=== PATIENT | male | born 1945 | race Caucasian/White ===

== ENCOUNTER 2017-11-16 11:08 | Observation (INO) | payer MEDICARE, OTHER ==
[2017-11-16] MEDS ORDERED: Sodium Chloride 0.9% 5 ML Syringe FLUSH PRN ×2 (11:09→12:03)
[2017-11-16] MEDS ORDERED: Aspirin 81 MG Tab.Chew PO ONE (11:18)
--- NOTE | 2017-11-16 11:18 | EDM.PDOC ---
ED HPI GENERAL MEDICAL PROBLEM - General Chief Complaint: Cardiovascular Problem Stated Complaint: CHEST PAIN Time Seen by Provider: 11/16/17 11:11 Source of Information: Reports: Patient History Limitations: Reports: No Limitations - History of Present Illness INITIAL COMMENTS - FREE TEXT/NARRATIVE: 72 YO WM presents to ER with 4 day history of substernal chest pain. Pt reports symptoms began with mild discomfort and over the last few days have become more severe. Pt reports today he developed associated shortness of breath and diaphoresis. Pt denies any dizziness/lightheadedness or nausea vomiting. Pt with PMH of Htn and IDDM which he reports he's been compliant with his medication. Pt denies tobacco use or previous cardiac history, although our old records indicate he's had an AMI in the past. Onset Date: 11/13/17 Duration: Day(s): Location: Reports: Chest Severity: Moderate Improves with: Reports: None Worsens with: Reports: None Associated Symptoms: Reports: Chest Pain, Diaphoresis, Shortness of Breath. Denies: Fever/Chills, Headaches, Nausea/Vomiting, Syncope Mid-Sternal Chest Pain Score (Numeric/FACES): 7 - Related Data Allergies Allergy/AdvReac Type Severity Reaction Status Date / Time No Known Drug Allergies Allergy Other Verified 08/04/14 20:06 Home Meds: Home Meds Aspirin [Halfprin] 81 mg PO DAILY 12/17/13 [History] Hydrochlorothiazide 12.5 mg PO DAILY 12/17/13 [History] Insulin Detemir [Levemir] 35 unit SUBCUT BID 12/17/13 [History] Lisinopril [Prinivil] 15 mg PO DAILY 12/17/13 [History] Naproxen Sodium 1 tab PO Q12HR PRN 12/17/13 [History] Pioglitazone [Actos] 30 mg PO DAILY 12/17/13 [History] Docusate Sodium [Colace] 100 mg PO DAILY 05/04/14 [History] Metoprolol Succinate [Toprol XL] 25 mg PO BID 05/04/14 [History] Social & Family History - Tobacco Use Smoking Status *Q: Never Smoker Second Hand Smoke Exposure: No - Alcohol Use Days Per Week of Alcohol Use: 1 Number of Drinks Per Day: 2 Total Drinks Per Week: 2 - Recreational Drug Use Recreational Drug Use: No ED ROS GENERAL - Review of Systems Review Of Systems: See Below Constitutional: Reports: No Symptoms HEENT: Reports: No Symptoms Respiratory: Reports: Shortness of Breath Cardiovascular: Reports: Chest Pain Endocrine: Reports: No Symptoms GI/Abdominal: Reports: No Symptoms : Reports: No Symptoms Musculoskeletal: Reports: No Symptoms Skin: Reports: No Symptoms Neurological: Reports: No Symptoms Psychiatric: Reports: No Symptoms Hematologic/Lymphatic: Reports: No Symptoms Immunologic: Reports: No Symptoms ED EXAM, GENERAL - Physical Exam Exam: See Below Exam Limited By: No Limitations General Appearance: Alert, WD/WN, No Apparent Distress Head: Atraumatic, Normocephalic Neck: Normal Inspection, Supple, Non-Tender, Full Range of Motion Respiratory/Chest: No Respiratory Distress, Lungs Clear, Normal Breath Sounds, No Accessory Muscle Use, Chest Non-Tender Cardiovascular: Normal Peripheral Pulses, Regular Rate, Rhythm, No Edema, No Gallop, No JVD, No Murmur, No Rub GI/Abdominal: Normal Bowel Sounds, Soft, Non-Tender, No Organomegaly, No Distention, No Abnormal Bruit, No Mass Back Exam: Normal Inspection, Full Range of Motion, NT Extremities: Normal Inspection, Normal Range of Motion, Non-Tender, Normal Capillary Refill, No Pedal Edema Neurological: Alert, Oriented, CN II-XII Intact, Normal Cognition, Normal Gait, Normal Reflexes, No Motor/Sensory Deficits Psychiatric: Normal Affect, Normal Mood Skin Exam: Warm, Dry, Intact, Normal Color, No Rash Lymphatic: No Adenopathy EKG INTERPRETATION EKG Date: 11/16/17 Time: 11:19 Rhythm: NSR Rate (Beats/Min): 75 [place]: Normal P-Wave: Present QRS: Normal ST-T: Normal QT: Normal Comparison: NA - No Prior EKG Course - Vital Signs Last Recorded V/S: Last Vital Signs Temp 36.2 C 11/16/17 11:10 Pulse 75 11/16/17 11:10 Resp 24 H 11/16/17 11:10 BP 175/96 H 11/16/17 11:41 Pulse Ox 91 L 11/16/17 11:10 - Orders/Labs/Meds Orders: Active Orders 24 hr Category Date Time Status Cardiac Monitoring [RC] . DIRECTED Care 11/16/17 11:09 Active EKG Documentation Completion [RC] ASDIRECTED Care 11/16/17 11:10 Active Oxygen Therapy Adult [Oxygen Therapy, ED] [] Care 11/16/17 11:09 Active ASDIRECTED Peripheral IV Care [RC] . DIRECTED Care 11/16/17 11:10 Active Chest 1V Frontal [CR] Stat Exams 11/16/17 11:09 Ordered Nitroglycerin [Nitro-Bid 2%] Med 11/16/17 11:45 Ordered 1 gm TOP Q6H Sodium Chloride 0.9% [Syrex Flush] Med 11/16/17 11:09 Active 5 ml FLUSH Q8HR PRN Peripheral IV Insertion Adult [OM.PC] Routine Oth 11/16/17 11:09 Ordered Medication Orders Nitroglycerin (Nitro-Bid 2%) 1 gm TOP Q6H RACHEL Last Admin: 11/16/17 11:55 Dose: 1 gm Sodium Chloride (Syrex Flush) 5 ml FLUSH Q8HR PRN PRN Reason: Keep Vein Open Labs: Laboratory Tests 11/16/17 11/16/17 11/16/17 Range/Units 11:15 11:15 11:15 WBC 9.8 (5.0-10.0) 10^3/uL RBC 4.74 (4.50-6.00) 10^6/uL Hgb 13.6 (13.0-17.0) g/dL Hct 41.9 (40.0-52.0) % MCV 88.3 (82.0-92.0) fL MCH 28.8 (27.0-31.0) pg MCHC 32.6 (32.0-36.0) g/dL RDW 13.5 (11.5-14.5) % Plt Count 289 (150-300) 10^3/uL MPV 7.0 L (7.4-10.4) fL Neut % (Auto) 64.6 (50.0-70.0) % Lymph % (Auto) 22.5 (20.0-40.0) % [place] % (Auto) 6.8 (2.0-8.0) % Eos % (Auto) 5.7 H (1.0-3.0) % Baso % (Auto) 0.4 (0.0-1.0) % Neut # (Auto) 6.3 (2.5-7.0) 10^3/uL Lymph # (Auto) 2.2 (1.0-4.0) 10^3/uL [place] # (Auto) 0.7 (0.1-0.8) 10^3/uL Eos # (Auto) 0.6 H (0.1-0.3) 10^3/uL Baso # (Auto) 0.0 (0.0-0.1) 10^3/uL PT 9.6 (8.9-11.4) SEC INR 0.9 (0.9-1.1) APTT 22.6 (20.8-31.2) SEC Sodium 144 (136-145) mmol/L Potassium 4.8 (3.3-5.3) mmol/L Chloride 104 (98-115) mmol/L Carbon Dioxide 24.5 (21.0-32.0) mmol/L BUN 20 (6-25) mg/dL Creatinine 1.10 (0.51-1.17) mg/dL Est Cr Clr Drug Dosing 64.67 mL/min Estimated GFR (MDRD) > 60 mL/min Glucose 222 H (70-110) mg/dL POC Glucose (74-106) mg/dl Calcium 8.2 L (8.7-10.3) mg/dL Total Bilirubin 0.4 (0.2-1.0) mg/dL AST 17 (15-37) U/L ALT 25 (12-78) U/L Alkaline Phosphatase 102 (46-116) IU/L Creatine Kinase 116 (26-276) U/L CK-MB (CK-2) 1.60 (0.00-4.30) ng/mL Troponin I < 0.04 (0.00-0.070) ng/mL B-Natriuretic Peptide 67 (0-100) pg/mL Total Protein 7.3 (6.4-8.2) g/dL Albumin 3.42 (3.00-4.80) g/dL 11/16/17 Range/Units 11:18 WBC (5.0-10.0) 10^3/uL RBC (4.50-6.00) 10^6/uL Hgb (13.0-17.0) g/dL Hct (40.0-52.0) % MCV (82.0-92.0) fL MCH (27.0-31.0) pg MCHC (32.0-36.0) g/dL RDW (11.5-14.5) % Plt Count (150-300) 10^3/uL MPV (7.4-10.4) fL Neut % (Auto) (50.0-70.0) % Lymph % (Auto) (20.0-40.0) % [place] % (Auto) (2.0-8.0) % Eos % (Auto) (1.0-3.0) % Baso % (Auto) (0.0-1.0) % Neut # (Auto) (2.5-7.0) 10^3/uL Lymph # (Auto) (1.0-4.0) 10^3/uL [place] # (Auto) (0.1-0.8) 10^3/uL Eos # (Auto) (0.1-0.3) 10^3/uL Baso # (Auto) (0.0-0.1) 10^3/uL PT (8.9-11.4) SEC INR (0.9-1.1) APTT (20.8-31.2) SEC Sodium (136-145) mmol/L Potassium (3.3-5.3) mmol/L Chloride (98-115) mmol/L Carbon Dioxide (21.0-32.0) mmol/L BUN (6-25) mg/dL Creatinine (0.51-1.17) mg/dL Est Cr Clr Drug Dosing mL/min Estimated GFR (MDRD) mL/min Glucose (70-110) mg/dL POC Glucose 196 H (74-106) mg/dl Calcium (8.7-10.3) mg/dL Total Bilirubin (0.2-1.0) mg/dL AST (15-37) U/L ALT (12-78) U/L Alkaline Phosphatase (46-116) IU/L Creatine Kinase (26-276) U/L CK-MB (CK-2) (0.00-4.30) ng/mL Troponin I (0.00-0.070) ng/mL B-Natriuretic Peptide (0-100) pg/mL Total Protein (6.4-8.2) g/dL Albumin (3.00-4.80) g/dL Meds: Medications Generic Name Dose Route Start Last Admin Trade Name Freq PRN Reason Stop Dose Admin Nitroglycerin 1 gm 11/16/17 11:45 11/16/17 11:55 Nitro-Bid 2% TOP 1 gm Q6H RACHEL Administration Sodium Chloride 5 ml 11/16/17 11:09 Syrex Flush FLUSH Q8HR PRN Keep Vein Open Discontinued Medications Generic Name Dose Route Start Last Admin Trade Name Freq PRN Reason Stop Dose Admin Aspirin 324 mg 11/16/17 11:18 11/16/17 11:19 Aspirin PO 11/16/17 11:19 324 mg ONETIME ONE Administration Aspirin Confirm 11/16/17 11:19 11/16/17 11:24 Aspirin Administered 11/16/17 11:20 Not Given Dose 324 mg .ROUTE .STK-MED ONE Nitroglycerin 0.4 mg 11/16/17 11:18 11/16/17 11:41 Nitrostat SL 0.4 mg Q5M PRN Administration Chest Pain Nitroglycerin Confirm 11/16/17 11:19 11/16/17 11:24 Nitrostat Administered 11/16/17 11:20 Not Given Dose 0.4 mg .ROUTE .STK-MED ONE - Radiology Interpretation Free Text/Narrative:: CXR- NAD Departure - Departure Time of Disposition: 11:58 Disposition: Refer to Observation Condition: Fair Clinical Impression: Chest pain Qualifiers: Chest pain type: unspecified Qualified Code(s): R07.9 - Chest pain, unspecified Hypertension Qualifiers: Hypertension type: unspecified Qualified Code(s): I10 - Essential (primary) hypertension Referrals: Mikaela Fitzgerald PA-C [Primary Care Provider] - Forms: ED Department Discharge - My Orders Last 24 Hours: My Active Orders 11/16/17 11:09 Cardiac Monitoring [RC] . DIRECTED Oxygen Therapy Adult [Oxygen Therapy, ED] [RC] ASDIRECTED Chest 1V Frontal [CR] Stat Sodium Chloride 0.9% [Syrex Flush] 5 ml FLUSH Q8HR PRN Peripheral IV Insertion Adult [OM.PC] Routine 11/16/17 11:10 EKG Documentation Completion [RC] ASDIRECTED Peripheral IV Care [RC] . DIRECTED 11/16/17 11:45 Nitroglycerin [Nitro-Bid 2%] 1 gm TOP Q6H - Assessment/Plan Last 24 Hours: My Active Orders 11/16/17 11:09 Cardiac Monitoring [RC] . DIRECTED Oxygen Therapy Adult [Oxygen Therapy, ED] [RC] ASDIRECTED Chest 1V Frontal [CR] Stat Sodium Chloride 0.9% [Syrex Flush] 5 ml FLUSH Q8HR PRN Peripheral IV Insertion Adult [OM.PC] Routine 11/16/17 11:10 EKG Documentation Completion [RC] ASDIRECTED Peripheral IV Care [RC] . DIRECTED 11/16/17 11:45 Nitroglycerin [Nitro-Bid 2%] 1 gm TOP Q6H Assessment:: 1. Chest pain 2. Hypertension- poorly controlled Plan: 1. Admit for Obs- Chest pain to [facility] 2. supportive care 3. trop I Q6 4. nitro/ASA
[2017-11-16] MEDS ORDERED: Aspirin 81 MG Tab.Chew ONE (11:19)
[2017-11-16] MEDS ORDERED: Nitroglycerin 0.4 MG Tab.SL ONE (11:19)
[2017-11-16] MEDS: Nitroglycerin 0.4 MG Tab.SL SL PRN ×3 (11:20→11:41)
[2017-11-16 11:52] LABS: CHLORIDE,CL 104 mmol/L (98-115); SODIUM,NA 144 mmol/L (136-145)
[2017-11-16] MEDS: Nitroglycerin 2% Oint 1 GM UD Packet TOP SCH ×2 (11:55→17:36)
[2017-11-16] MEDS ORDERED: Ondansetron 4 MG/2 ML SDV IV PRN (12:03)
[2017-11-16] MEDS ORDERED: Morphine 2 MG/ML Syringe IVPUSH PRN (12:03)
[2017-11-16] MEDS ORDERED: Metoprolol Tartrate 5 MG/5 ML SDV IVPUSH ONE (12:11)
[2017-11-16] MEDS ORDERED: Labetalol 100 MG/20 ML MDV IVPUSH ONE ×2 (16:14→16:42)
[2017-11-16] MEDS: Potassium Chloride 10 MEQ Tab.ER PO SCH (18:04)
[2017-11-16] MEDS: Lisinopril 10 MG Tab PO SCH (18:04)
[2017-11-16] MEDS: Insulin Aspart 100 Units/ML 3 ML Pen SUBCUT SCH (19:38)
[2017-11-16] MEDS: Insulin Detemir 100 Units/ML 3 ML Pen SUBCUT SCH (20:24)
[2017-11-16] MEDS ORDERED: Metoprolol Tartrate 50 MG Tab PO ONE (21:00)
[2017-11-16] MEDS: Docusate Sodium 100 MG Cap PO SCH (21:32)
[2017-11-16] MEDS: Gabapentin 300 MG Cap PO SCH (21:32)
[2017-11-17] MEDS: Nitroglycerin 2% Oint 1 GM UD Packet TOP SCH ×2 (00:07→06:09)
[2017-11-17] MEDS ORDERED: Nitroglycerin 0.4 MG Tab.SL SL PRN (00:38)
[2017-11-17] MEDS ORDERED: Atropine 0.1 MG/ML 10 ML Syringe IVPUSH PRN (00:38)
[2017-11-17] MEDS ORDERED: EPINEPHrine 1:10,000 1 MG/10 ML Syringe IVPUSH PRN (00:38)
[2017-11-17] MEDS ORDERED: Lidocaine 2% 100 MG/5 ML Syringe IVPUSH PRN (00:38)
[2017-11-17 08:03] LABS: CHLORIDE,CL 105 mmol/L (98-115); SODIUM,NA 141 mmol/L (136-145)
[2017-11-17] MEDS: Insulin Detemir 100 Units/ML 3 ML Pen SUBCUT SCH ×2 (08:49→19:39)
[2017-11-17] MEDS: Aspirin 81 MG Tab.EC PO SCH (08:49)
[2017-11-17] MEDS: Docusate Sodium 100 MG Cap PO SCH ×2 (08:49→20:42)
[2017-11-17] MEDS: Furosemide 20 MG Tab PO SCH (08:49)
[2017-11-17] MEDS: Insulin Aspart 100 Units/ML 3 ML Pen SUBCUT SCH ×2 (08:50→19:40)
[2017-11-17] MEDS: Potassium Chloride 10 MEQ Tab.ER PO SCH (08:53)
[2017-11-17] MEDS ORDERED: Aspirin 325 MG Tab.EC PO SCH (09:00)
--- NOTE | 2017-11-17 10:27 | PCM.HP ---
H&P History of Present Illness - General Date of Service: 11/16/17 Admit Problem/Dx: Admission Diagnosis/Problem Admission Diagnosis/Problem Chest pain Source of Information: Patient, Old Records, Provider, RN History Limitations: Reports: No Limitations - History of Present Illness Initial Comments - Free Text/Narative: This 72-year-old morbidly obese gentleman was admitted through the ED due to chest pain rule, R/O PA and elevated blood pressure. Patient states he was his in his normal state of health until 4 days ago and admits to having normal and stable blood pressures and stated he felt good all winter long however now with a 4-5 day history of progressively worsening substernal chest pain with some shortness of breath. He denies any dizziness/lightheadedness or nausea vomiting. He does have significant CV risk factors that include HTN, T2 DM, obesity without any CVA history in the past. Denies tobacco use. Pertinent home medications include metoprolol succinate 25 mg twice a day, Lasix 20 mg daily, lisinopril 2.5 mg daily aspirin 81 mg daily. statin intolerant--liver Mid-Sternal Chest Pain Score (Numeric/FACES): 2 - Related Data Allergies/Adverse Reactions: Allergies Allergy/AdvReac Type Severity Reaction Status Date / Time exenatide [From Bydureon] Allergy Facial Verified 11/16/17 12:02 Swelling [id number] Reductase Allergy Liver Verified 11/16/17 12:02 Inhibitor Problems Home Medications: Home Meds Aspirin [Halfprin] 81 mg PO DAILY 12/17/13 [History] Insulin Detemir [Levemir] 40 unit SUBCUT BID@12/17/13 [History] Docusate Sodium [Colace] 100 mg PO BID 05/04/14 [History] Metoprolol Succinate [Toprol XL] 25 mg PO BID 05/04/14 [History] Amoxicillin 2,000 mg PO ASDIRECTED PRN 11/16/17 [History] Furosemide [Lasix] 20 mg PO DAILY 11/16/17 [History] Gabapentin [Neurontin] 300 mg PO BEDTIME 11/16/17 [History] Insulin Aspart [Novolog Flexpen] 15 units SQ BID@11/16/17 [History] Lisinopril 2.5 mg PO DAILY 11/16/17 [History] Potassium Chloride [Klor-Con 10] 20 meq PO BID 11/16/17 [History] Past Medical History HEENT History: Reports: Impaired Vision Cardiovascular History: Reports: High Cholesterol, Hypertension Musculoskeletal History: Reports: Arthritis Endocrine/Metabolic History: Reports: Diabetes, Type II, Obesity/BMI 30+ - Infectious Disease History Infectious Disease History: Reports: Measles, Mumps - Past Surgical History Cardiovascular Surgical History: Reports: None GI Surgical History: Reports: Appendectomy Musculoskeletal Surgical History: Reports: Knee Replacement Social & Family History - Family History Family Medical History: Noncontributory - Tobacco Use Smoking Status *Q: Never Smoker Second Hand Smoke Exposure: No - Caffeine Use Caffeine Use: Reports: None Other Caffeine Use: Diet soda only - Alcohol Use Days Per Week of Alcohol Use: 1 Number of Drinks Per Day: 2 Total Drinks Per Week: 2 - Recreational Drug Use Recreational Drug Use: No H&P Review of Systems - Review of Systems: Review Of Systems: See Below General: Denies: Diaphoresis HEENT: Reports: No Symptoms Pulmonary: Reports: Shortness of Breath, Wheezing. Denies: Cough Cardiovascular: Reports: Chest Pain, Blood Pressure Problem. Denies: Palpitations, Orthopnea, PND, Edema, Lightheadedness Gastrointestinal: Reports: No Symptoms Genitourinary: Reports: No Symptoms Musculoskeletal: Reports: No Symptoms Skin: Reports: No Symptoms Psychiatric: Reports: No Symptoms Neurological: Reports: No Symptoms Hematologic/Lymphatic: Reports: No Symptoms Immunologic: Reports: No Symptoms Exam - Exam Exam: See Below - Vital Signs Vital Signs: Last Vital Signs Temp 97.4 F 11/17/17 06:35 Pulse 74 11/17/17 06:35 Resp 16 11/17/17 06:35 BP 145/83 H 11/17/17 06:35 Pulse Ox 94 L 11/17/17 07:25 Weight: 299 lb 4.8 oz - Exam Quality Assessment: Supplemental Oxygen, DVT Prophylaxis General: Alert, Oriented, Moderate Distress HEENT: Mucosa Moist & Reform Neck: Supple Lungs: Clear to Auscultation. No: Wheezing Cardiovascular: Regular Rate, Regular Rhythm GI/Abdominal Exam: Normal Bowel Sounds (Male) Exam: Deferred Rectal (Males) Exam: Deferred Back Exam: No: CVA Tenderness (L), CVA Tenderness (R) Extremities: No Pedal Edema Skin: Warm, Dry, Intact Neurological: Cranial Nerves Intact, Reflexes Equal Bilateral Neuro Extensive - Mental Status: Alert, Oriented x3, Normal Mood/Affect, Normal Cognition Neuro Extensive - Motor, Sensory, Reflexes: CN II-XII Intact, Normal Gait, Normal Reflexes Psychiatric: Alert, Normal Affect, Anxious - Patient Data Lab Results Last 24 hrs: Laboratory Results - last 24 hr 11/16/17 11/16/17 11/16/17 Range/Units 11:15 11:15 11:15 WBC 9.8 (5.0-10.0) 10^3/uL RBC 4.74 (4.50-6.00) 10^6/uL Hgb 13.6 (13.0-17.0) g/dL Hct 41.9 (40.0-52.0) % MCV 88.3 (82.0-92.0) fL MCH 28.8 (27.0-31.0) pg MCHC 32.6 (32.0-36.0) g/dL RDW 13.5 (11.5-14.5) % Plt Count 289 (150-300) 10^3/uL MPV 7.0 L (7.4-10.4) fL Neut % (Auto) 64.6 (50.0-70.0) % Lymph % (Auto) 22.5 (20.0-40.0) % [place] % (Auto) 6.8 (2.0-8.0) % Eos % (Auto) 5.7 H (1.0-3.0) % Baso % (Auto) 0.4 (0.0-1.0) % Neut # (Auto) 6.3 (2.5-7.0) 10^3/uL Lymph # (Auto) 2.2 (1.0-4.0) 10^3/uL [place] # (Auto) 0.7 (0.1-0.8) 10^3/uL Eos # (Auto) 0.6 H (0.1-0.3) 10^3/uL Baso # (Auto) 0.0 (0.0-0.1) 10^3/uL PT 9.6 (8.9-11.4) SEC INR 0.9 (0.9-1.1) APTT 22.6 (20.8-31.2) SEC Sodium 144 (136-145) mmol/L Potassium 4.8 (3.3-5.3) mmol/L Chloride 104 (98-115) mmol/L Carbon Dioxide 24.5 (21.0-32.0) mmol/L BUN 20 (6-25) mg/dL Creatinine 1.10 (0.51-1.17) mg/dL Est Cr Clr Drug Dosing 64.67 mL/min Estimated GFR (MDRD) > 60 mL/min Glucose 222 H (70-110) mg/dL POC Glucose (74-106) mg/dl Calcium 8.2 L (8.7-10.3) mg/dL Magnesium (1.8-2.4) mg/dL Total Bilirubin 0.4 (0.2-1.0) mg/dL AST 17 (15-37) U/L ALT 25 (12-78) U/L Alkaline Phosphatase 102 (46-116) IU/L Creatine Kinase 116 (26-276) U/L CK-MB (CK-2) 1.60 (0.00-4.30) ng/mL Troponin I < 0.04 (0.00-0.070) ng/mL B-Natriuretic Peptide 67 (0-100) pg/mL Total Protein 7.3 (6.4-8.2) g/dL Albumin 3.42 (3.00-4.80) g/dL 11/16/17 11/16/17 11/16/17 Range/Units 11:18 17:40 19:30 WBC (5.0-10.0) 10^3/uL RBC (4.50-6.00) 10^6/uL Hgb (13.0-17.0) g/dL Hct (40.0-52.0) % MCV (82.0-92.0) fL MCH (27.0-31.0) pg MCHC (32.0-36.0) g/dL RDW (11.5-14.5) % Plt Count (150-300) 10^3/uL MPV (7.4-10.4) fL Neut % (Auto) (50.0-70.0) % Lymph % (Auto) (20.0-40.0) % [place] % (Auto) (2.0-8.0) % Eos % (Auto) (1.0-3.0) % Baso % (Auto) (0.0-1.0) % Neut # (Auto) (2.5-7.0) 10^3/uL Lymph # (Auto) (1.0-4.0) 10^3/uL [place] # (Auto) (0.1-0.8) 10^3/uL Eos # (Auto) (0.1-0.3) 10^3/uL Baso # (Auto) (0.0-0.1) 10^3/uL PT (8.9-11.4) SEC INR (0.9-1.1) APTT (20.8-31.2) SEC Sodium (136-145) mmol/L Potassium (3.3-5.3) mmol/L Chloride (98-115) mmol/L Carbon Dioxide (21.0-32.0) mmol/L BUN (6-25) mg/dL Creatinine (0.51-1.17) mg/dL Est Cr Clr Drug Dosing mL/min Estimated GFR (MDRD) mL/min Glucose (70-110) mg/dL POC Glucose 196 H 187 H (74-106) mg/dl Calcium (8.7-10.3) mg/dL Magnesium (1.8-2.4) mg/dL Total Bilirubin (0.2-1.0) mg/dL AST (15-37) U/L ALT (12-78) U/L Alkaline Phosphatase (46-116) IU/L Creatine Kinase (26-276) U/L CK-MB (CK-2) (0.00-4.30) ng/mL Troponin I < 0.04 (0.00-0.070) ng/mL B-Natriuretic Peptide (0-100) pg/mL Total Protein (6.4-8.2) g/dL Albumin (3.00-4.80) g/dL 11/17/17 11/17/17 11/17/17 Range/Units 01:10 07:05 07:05 WBC 10.4 H (5.0-10.0) 10^3/uL RBC 4.50 (4.50-6.00) 10^6/uL Hgb 12.6 L (13.0-17.0) g/dL Hct 40.1 (40.0-52.0) % MCV 89.2 (82.0-92.0) fL MCH 28.1 (27.0-31.0) pg MCHC 31.5 L (32.0-36.0) g/dL RDW 13.5 (11.5-14.5) % Plt Count 273 (150-300) 10^3/uL MPV 7.2 L (7.4-10.4) fL Neut % (Auto) 65.6 (50.0-70.0) % Lymph % (Auto) 20.7 (20.0-40.0) % [place] % (Auto) 8.0 (2.0-8.0) % Eos % (Auto) 5.3 H (1.0-3.0) % Baso % (Auto) 0.4 (0.0-1.0) % Neut # (Auto) 6.8 (2.5-7.0) 10^3/uL Lymph # (Auto) 2.2 (1.0-4.0) 10^3/uL [place] # (Auto) 0.8 (0.1-0.8) 10^3/uL Eos # (Auto) 0.6 H (0.1-0.3) 10^3/uL Baso # (Auto) 0.0 (0.0-0.1) 10^3/uL PT (8.9-11.4) SEC INR (0.9-1.1) APTT (20.8-31.2) SEC Sodium 141 (136-145) mmol/L Potassium 4.8 (3.3-5.3) mmol/L Chloride 105 (98-115) mmol/L Carbon Dioxide 28.7 (21.0-32.0) mmol/L BUN 20 (6-25) mg/dL Creatinine 1.22 H (0.51-1.17) mg/dL Est Cr Clr Drug Dosing 58.31 mL/min Estimated GFR (MDRD) 58 mL/min Glucose 158 H (70-110) mg/dL POC Glucose (74-106) mg/dl Calcium 8.0 L (8.7-10.3) mg/dL Magnesium 1.7 L (1.8-2.4) mg/dL Total Bilirubin (0.2-1.0) mg/dL AST (15-37) U/L ALT (12-78) U/L Alkaline Phosphatase (46-116) IU/L Creatine Kinase (26-276) U/L CK-MB (CK-2) (0.00-4.30) ng/mL Troponin I < 0.04 < 0.04 (0.00-0.070) ng/mL B-Natriuretic Peptide (0-100) pg/mL Total Protein (6.4-8.2) g/dL Albumin (3.00-4.80) g/dL 11/17/17 Range/Units 07:11 WBC (5.0-10.0) 10^3/uL RBC (4.50-6.00) 10^6/uL Hgb (13.0-17.0) g/dL Hct (40.0-52.0) % MCV (82.0-92.0) fL MCH (27.0-31.0) pg MCHC (32.0-36.0) g/dL RDW (11.5-14.5) % Plt Count (150-300) 10^3/uL MPV (7.4-10.4) fL Neut % (Auto) (50.0-70.0) % Lymph % (Auto) (20.0-40.0) % [place] % (Auto) (2.0-8.0) % Eos % (Auto) (1.0-3.0) % Baso % (Auto) (0.0-1.0) % Neut # (Auto) (2.5-7.0) 10^3/uL Lymph # (Auto) (1.0-4.0) 10^3/uL [place] # (Auto) (0.1-0.8) 10^3/uL Eos # (Auto) (0.1-0.3) 10^3/uL Baso # (Auto) (0.0-0.1) 10^3/uL PT (8.9-11.4) SEC INR (0.9-1.1) APTT (20.8-31.2) SEC Sodium (136-145) mmol/L Potassium (3.3-5.3) mmol/L Chloride (98-115) mmol/L Carbon Dioxide (21.0-32.0) mmol/L BUN (6-25) mg/dL Creatinine (0.51-1.17) mg/dL Est Cr Clr Drug Dosing mL/min Estimated GFR (MDRD) mL/min Glucose (70-110) mg/dL POC Glucose 157 H (74-106) mg/dl Calcium (8.7-10.3) mg/dL Magnesium (1.8-2.4) mg/dL Total Bilirubin (0.2-1.0) mg/dL AST (15-37) U/L ALT (12-78) U/L Alkaline Phosphatase (46-116) IU/L Creatine Kinase (26-276) U/L CK-MB (CK-2) (0.00-4.30) ng/mL Troponin I (0.00-0.070) ng/mL B-Natriuretic Peptide (0-100) pg/mL Total Protein (6.4-8.2) g/dL Albumin (3.00-4.80) g/dL Result Diagrams: 11/17/17 07:05 11/17/17 07:05 EKG INTERPRETATION EKG Date: 11/16/17 Rhythm: Other (Sinus tach) [place]: Normal P-Wave: Present QRS: Normal ST-T: Normal QT: Normal Problem List Initiated/Reviewed/Updated: Yes Orders Last 24hrs: Active Orders 24 hr Category Date Time Status Patient Status [ADT] Routine ADT 11/16/17 12:03 Ordered Bedrest Bathroom Privileges [RC] ASDIRECTED Care 11/16/17 12:03 Active Blood Glucose Check, Bedside [RC] BIDMEALS Care 11/16/17 16:40 Active Cardiac Monitoring [RC] . DIRECTED Care 11/16/17 11:09 Inactive Cardiac Monitoring [RC] 0300,0700,1100,1500,1900,2300 Care 11/16/17 12:04 Active Oxygen Therapy [RC] .PRN Care 11/16/17 12:03 Active VTE/DVT Education [RC] PER UNIT ROUTINE Care 11/16/17 12:03 Active Vital Signs [RC] 0300,0700,1100,1500,1900,2300 Care 11/16/17 12:03 Active [employer] Diet [DIET] Diet 11/16/17 Lunch Active Heart Healthy Diet [DIET] Diet 11/16/17 Dinner Active Aspirin [Halfprin] Med 11/17/17 09:00 Active 81 mg PO DAILY Atropine [Atropine 0.1 MG/ML] Med 11/17/17 00:38 Active 0 mg IVPUSH ASDIRECTED PRN Docusate Sodium [Colace] Med 11/16/17 21:00 Active 100 mg PO BID EPINEPHrine [EPINEPHrine 1:10,000] Med 11/17/17 00:38 Active 1 mg IVPUSH ASDIRECTED PRN Furosemide [Lasix] Med 11/17/17 09:00 Active 20 mg PO DAILY Gabapentin [Neurontin] Med 11/16/17 21:00 Active 300 mg PO BEDTIME Insulin Aspart [NovoLOG] Med 11/16/17 19:30 Active 15 unit SUBCUT BID@0730,1930 Insulin Detemir [Levemir] Med 11/16/17 19:30 Active 40 unit SUBCUT BID@0730,1930 Isosorbide Mononitrate [Imdur] Med 11/17/17 09:00 Active 30 mg PO DAILY Lidocaine 2% [Xylocaine 2%] Med 11/17/17 00:38 Active 0 mg IVPUSH ASDIRECTED PRN Lisinopril [Prinivil] Med 11/16/17 17:30 Active 10 mg PO DAILY Morphine Med 11/16/17 12:03 Active 2 mg IVPUSH Q2H PRN Nitroglycerin [Nitrostat] Med 11/17/17 00:38 Active 0.4 mg SL ASDIRECTED PRN Ondansetron [Zofran] Med 11/16/17 12:03 Active 4 mg IV Q6H PRN Potassium Chloride [Klor-Con M20] Med 11/17/17 09:00 Active 20 meq PO BIDMEALS Sodium Chloride 0.9% [Syrex Flush] Med 11/16/17 12:03 Active 5 ml FLUSH Q8HR PRN Saline Lock Insert [OM.PC] Routine Oth 11/16/17 12:03 Ordered Resuscitation Status Routine Resus Stat 11/16/17 12:03 Ordered Medication Orders Aspirin (Halfprin) 81 mg PO DAILY [facility]ACHEL Last Admin: 11/17/17 08:49 Dose: 81 mg Atropine Sulfate (Atropine 0.1 Mg/Ml) 0 mg IVPUSH ASDIRECTED PRN PRN Reason: Heart Docusate Sodium (Colace) 100 mg PO BID [facility] Last Admin: 11/17/17 08:49 Dose: 100 mg Admin: 11/16/17 21:32 Dose: 100 mg Epinephrine HCl (Epinephrine 1:10,000) 1 mg IVPUSH ASDIRECTED PRN PRN Reason: Heart Furosemide (Lasix) 20 mg PO DAILY [facility] Last Admin: 11/17/17 08:49 Dose: 20 mg Gabapentin (Neurontin) 300 mg PO BEDTIME [facility] Last Admin: 11/16/17 21:32 Dose: 300 mg Insulin Aspart (Novolog) 15 unit SUBCUT BID@729,1929 [facility] Last Admin: 11/17/17 08:50 Dose: 15 units Admin: 11/16/17 19:38 Dose: 15 units Insulin Detemir (Levemir) 40 unit SUBCUT BID@729,1929 [facility] Last Admin: 11/17/17 08:49 Dose: 40 units Admin: 11/16/17 20:24 Dose: 40 units Isosorbide Mononitrate (Imdur) 30 mg PO DAILY [facility] Lidocaine HCl (Xylocaine 2%) 0 mg IVPUSH ASDIRECTED PRN PRN Reason: Heart Lisinopril (Prinivil) 10 mg PO DAILY [facility] Last Admin: 11/16/17 18:04 Dose: 10 mg Morphine Sulfate (Morphine) 2 mg IVPUSH Q2H PRN PRN Reason: Pain (severe 7-10) Last Admin: 11/16/17 19:49 Dose: 2 mg Nitroglycerin (Nitrostat) 0.4 mg SL ASDIRECTED PRN PRN Reason: Heart Ondansetron HCl (Zofran) 4 mg IV Q6H PRN PRN Reason: Nausea/Vomiting Potassium Chloride (Klor-Con M20) 20 meq PO BIDMEALS [facility] Sodium Chloride (Syrex Flush) 5 ml FLUSH Q8HR PRN PRN Reason: Keep Vein Open Last Admin: 11/16/17 16:25 Dose: 5 ml Assessment/Plan Comment:: HISTORY OF PRESENT ILLNESS This 72-year-old morbidly obese gentleman was admitted through the ED due to chest pain rule, R/O PA and elevated blood pressure. Patient states he was his in his normal state of health until 4 days ago and admits to having normal and stable blood pressures and stated he felt good all winter long however now with a 4-5 day history of progressively worsening substernal chest pain with some shortness of breath. He denies any dizziness/lightheadedness or nausea vomiting. He does have significant CV risk factors that include HTN, T2 DM, obesity without any CVA history in the past. Denies tobacco use. Pertinent home medications include metoprolol succinate 25 mg twice a day, Lasix 20 mg daily, lisinopril 2.5 mg daily aspirin 81 mg daily. statin intolerant--liver Pertinent ED workup EKG; ST 109 Initial troponin negative CK-MB, 1.6 BNP 67 VS: 168/117 Chest x-ray, low lung volumes with hypoinflation, likely d/t due to pickwickian body habitus, no evidence of CHF After patient arrived to the floor patient required ongoing further assessment, management of ongoing chest pain, hypertensive crisis requiring IV CV agents. Labetalol IVP, nitrates, increase lisinopril and beta bob Primary problems Chest pain, likely anginal, likely CAD contributory Hypertension, stage II Chronic problems T2DM, , long-acting 40 units, prandial with NovoLog Obesity, morbid, pickwickian BMi 40 HTN, uncontrolled Peripheral neuropathy Code Status: discussed with patient, DO NOT RESUSCITATE Overall plan today, likely ischemic demand due to stage II hypertension with end organ symptoms. IV labetalol, increase beta bob, monitor cardiac biomarkers, EKG if chest pain, telemetry status. Nitroglycerin paste. Low Threshold for transfer, monitor him closely since significant CV risks. Will consult with cardiology in the a.m. medical management for now. I would recommend adjunctive Plavix therapy.
--- NOTE | 2017-11-17 10:38 | PCM.PN ---
- General Info Date of Service: 11/17/17 Functional Status: Reports: Pain Controlled, Tolerating Diet. Denies: Ambulating, New Symptoms (Chest pain off completely resolved very low at this time) - Review of Systems General: Reports: No Symptoms HEENT: Reports: No Symptoms Pulmonary: Reports: Shortness of Breath (Very mild shortness of breath), Wheezing (Minimal wheeze) Cardiovascular: Denies: Chest Pain, Orthopnea, Edema Gastrointestinal: Reports: No Symptoms Genitourinary: Reports: No Symptoms Musculoskeletal: Reports: No Symptoms Skin: Reports: No Symptoms Neurological: Reports: No Symptoms Psychiatric: Reports: No Symptoms - Patient Data Vitals - Most Recent: Last Vital Signs Temp 97.4 F 11/17/17 06:35 Pulse 74 11/17/17 06:35 Resp 16 11/17/17 06:35 BP 145/83 H 11/17/17 06:35 Pulse Ox 95 11/17/17 10:15 Weight - Most Recent: 299 lb 4.8 oz I&O - Last 24 Hours: Intake & Output 11/16/17 11/17/17 11/17/17 22:59 06:59 14:59 Intake Total 395 50 Output Total 300 250 Balance 95 -200 Lab Results Last 24 Hours: Laboratory Results - last 24 hr 11/16/17 11/16/17 11/16/17 Range/Units 11:15 11:15 11:15 WBC 9.8 (5.0-10.0) 10^3/uL RBC 4.74 (4.50-6.00) 10^6/uL Hgb 13.6 (13.0-17.0) g/dL Hct 41.9 (40.0-52.0) % MCV 88.3 (82.0-92.0) fL MCH 28.8 (27.0-31.0) pg MCHC 32.6 (32.0-36.0) g/dL RDW 13.5 (11.5-14.5) % Plt Count 289 (150-300) 10^3/uL MPV 7.0 L (7.4-10.4) fL Neut % (Auto) 64.6 (50.0-70.0) % Lymph % (Auto) 22.5 (20.0-40.0) % [place] % (Auto) 6.8 (2.0-8.0) % Eos % (Auto) 5.7 H (1.0-3.0) % Baso % (Auto) 0.4 (0.0-1.0) % Neut # (Auto) 6.3 (2.5-7.0) 10^3/uL Lymph # (Auto) 2.2 (1.0-4.0) 10^3/uL [place] # (Auto) 0.7 (0.1-0.8) 10^3/uL Eos # (Auto) 0.6 H (0.1-0.3) 10^3/uL Baso # (Auto) 0.0 (0.0-0.1) 10^3/uL PT 9.6 (8.9-11.4) SEC INR 0.9 (0.9-1.1) APTT 22.6 (20.8-31.2) SEC Sodium 144 (136-145) mmol/L Potassium 4.8 (3.3-5.3) mmol/L Chloride 104 (98-115) mmol/L Carbon Dioxide 24.5 (21.0-32.0) mmol/L BUN 20 (6-25) mg/dL Creatinine 1.10 (0.51-1.17) mg/dL Est Cr Clr Drug Dosing 64.67 mL/min Estimated GFR (MDRD) > 60 mL/min Glucose 222 H (70-110) mg/dL POC Glucose (74-106) mg/dl Calcium 8.2 L (8.7-10.3) mg/dL Magnesium (1.8-2.4) mg/dL Total Bilirubin 0.4 (0.2-1.0) mg/dL AST 17 (15-37) U/L ALT 25 (12-78) U/L Alkaline Phosphatase 102 (46-116) IU/L Creatine Kinase 116 (26-276) U/L CK-MB (CK-2) 1.60 (0.00-4.30) ng/mL Troponin I < 0.04 (0.00-0.070) ng/mL B-Natriuretic Peptide 67 (0-100) pg/mL Total Protein 7.3 (6.4-8.2) g/dL Albumin 3.42 (3.00-4.80) g/dL 11/16/17 11/16/17 11/16/17 Range/Units 11:18 17:40 19:30 WBC (5.0-10.0) 10^3/uL RBC (4.50-6.00) 10^6/uL Hgb (13.0-17.0) g/dL Hct (40.0-52.0) % MCV (82.0-92.0) fL MCH (27.0-31.0) pg MCHC (32.0-36.0) g/dL RDW (11.5-14.5) % Plt Count (150-300) 10^3/uL MPV (7.4-10.4) fL Neut % (Auto) (50.0-70.0) % Lymph % (Auto) (20.0-40.0) % [place] % (Auto) (2.0-8.0) % Eos % (Auto) (1.0-3.0) % Baso % (Auto) (0.0-1.0) % Neut # (Auto) (2.5-7.0) 10^3/uL Lymph # (Auto) (1.0-4.0) 10^3/uL [place] # (Auto) (0.1-0.8) 10^3/uL Eos # (Auto) (0.1-0.3) 10^3/uL Baso # (Auto) (0.0-0.1) 10^3/uL PT (8.9-11.4) SEC INR (0.9-1.1) APTT (20.8-31.2) SEC Sodium (136-145) mmol/L Potassium (3.3-5.3) mmol/L Chloride (98-115) mmol/L Carbon Dioxide (21.0-32.0) mmol/L BUN (6-25) mg/dL Creatinine (0.51-1.17) mg/dL Est Cr Clr Drug Dosing mL/min Estimated GFR (MDRD) mL/min Glucose (70-110) mg/dL POC Glucose 196 H 187 H (74-106) mg/dl Calcium (8.7-10.3) mg/dL Magnesium (1.8-2.4) mg/dL Total Bilirubin (0.2-1.0) mg/dL AST (15-37) U/L ALT (12-78) U/L Alkaline Phosphatase (46-116) IU/L Creatine Kinase (26-276) U/L CK-MB (CK-2) (0.00-4.30) ng/mL Troponin I < 0.04 (0.00-0.070) ng/mL B-Natriuretic Peptide (0-100) pg/mL Total Protein (6.4-8.2) g/dL Albumin (3.00-4.80) g/dL 11/17/17 11/17/17 11/17/17 Range/Units 01:10 07:05 07:05 WBC 10.4 H (5.0-10.0) 10^3/uL RBC 4.50 (4.50-6.00) 10^6/uL Hgb 12.6 L (13.0-17.0) g/dL Hct 40.1 (40.0-52.0) % MCV 89.2 (82.0-92.0) fL MCH 28.1 (27.0-31.0) pg MCHC 31.5 L (32.0-36.0) g/dL RDW 13.5 (11.5-14.5) % Plt Count 273 (150-300) 10^3/uL MPV 7.2 L (7.4-10.4) fL Neut % (Auto) 65.6 (50.0-70.0) % Lymph % (Auto) 20.7 (20.0-40.0) % [place] % (Auto) 8.0 (2.0-8.0) % Eos % (Auto) 5.3 H (1.0-3.0) % Baso % (Auto) 0.4 (0.0-1.0) % Neut # (Auto) 6.8 (2.5-7.0) 10^3/uL Lymph # (Auto) 2.2 (1.0-4.0) 10^3/uL [place] # (Auto) 0.8 (0.1-0.8) 10^3/uL Eos # (Auto) 0.6 H (0.1-0.3) 10^3/uL Baso # (Auto) 0.0 (0.0-0.1) 10^3/uL PT (8.9-11.4) SEC INR (0.9-1.1) APTT (20.8-31.2) SEC Sodium 141 (136-145) mmol/L Potassium 4.8 (3.3-5.3) mmol/L Chloride 105 (98-115) mmol/L Carbon Dioxide 28.7 (21.0-32.0) mmol/L BUN 20 (6-25) mg/dL Creatinine 1.22 H (0.51-1.17) mg/dL Est Cr Clr Drug Dosing 58.31 mL/min Estimated GFR (MDRD) 58 mL/min Glucose 158 H (70-110) mg/dL POC Glucose (74-106) mg/dl Calcium 8.0 L (8.7-10.3) mg/dL Magnesium 1.7 L (1.8-2.4) mg/dL Total Bilirubin (0.2-1.0) mg/dL AST (15-37) U/L ALT (12-78) U/L Alkaline Phosphatase (46-116) IU/L Creatine Kinase (26-276) U/L CK-MB (CK-2) (0.00-4.30) ng/mL Troponin I < 0.04 < 0.04 (0.00-0.070) ng/mL B-Natriuretic Peptide (0-100) pg/mL Total Protein (6.4-8.2) g/dL Albumin (3.00-4.80) g/dL 11/17/17 Range/Units 07:11 WBC (5.0-10.0) 10^3/uL RBC (4.50-6.00) 10^6/uL Hgb (13.0-17.0) g/dL Hct (40.0-52.0) % MCV (82.0-92.0) fL MCH (27.0-31.0) pg MCHC (32.0-36.0) g/dL RDW (11.5-14.5) % Plt Count (150-300) 10^3/uL MPV (7.4-10.4) fL Neut % (Auto) (50.0-70.0) % Lymph % (Auto) (20.0-40.0) % [place] % (Auto) (2.0-8.0) % Eos % (Auto) (1.0-3.0) % Baso % (Auto) (0.0-1.0) % Neut # (Auto) (2.5-7.0) 10^3/uL Lymph # (Auto) (1.0-4.0) 10^3/uL [place] # (Auto) (0.1-0.8) 10^3/uL Eos # (Auto) (0.1-0.3) 10^3/uL Baso # (Auto) (0.0-0.1) 10^3/uL PT (8.9-11.4) SEC INR (0.9-1.1) APTT (20.8-31.2) SEC Sodium (136-145) mmol/L Potassium (3.3-5.3) mmol/L Chloride (98-115) mmol/L Carbon Dioxide (21.0-32.0) mmol/L BUN (6-25) mg/dL Creatinine (0.51-1.17) mg/dL Est Cr Clr Drug Dosing mL/min Estimated GFR (MDRD) mL/min Glucose (70-110) mg/dL POC Glucose 157 H (74-106) mg/dl Calcium (8.7-10.3) mg/dL Magnesium (1.8-2.4) mg/dL Total Bilirubin (0.2-1.0) mg/dL AST (15-37) U/L ALT (12-78) U/L Alkaline Phosphatase (46-116) IU/L Creatine Kinase (26-276) U/L CK-MB (CK-2) (0.00-4.30) ng/mL Troponin I (0.00-0.070) ng/mL B-Natriuretic Peptide (0-100) pg/mL Total Protein (6.4-8.2) g/dL Albumin (3.00-4.80) g/dL Med Orders - Current: Current Medications Aspirin (Halfprin) 81 mg PO DAILY [facility] Last Admin: 11/17/17 08:49 Dose: 81 mg Atropine Sulfate (Atropine 0.1 Mg/Ml) 0 mg IVPUSH ASDIRECTED PRN PRN Reason: Heart Docusate Sodium (Colace) 100 mg PO BID [facility] Last Admin: 11/17/17 08:49 Dose: 100 mg Epinephrine HCl (Epinephrine 1:10,000) 1 mg IVPUSH ASDIRECTED PRN PRN Reason: Heart Furosemide (Lasix) 20 mg PO DAILY [facility] Last Admin: 11/17/17 08:49 Dose: 20 mg Gabapentin (Neurontin) 300 mg PO BEDTIME [facility] Last Admin: 11/16/17 21:32 Dose: 300 mg Insulin Aspart (Novolog) 15 unit SUBCUT BID@ [facility] Last Admin: 11/17/17 08:50 Dose: 15 units Insulin Detemir (Levemir) 40 unit SUBCUT BID@[id number] [facility] Last Admin: 11/17/17 08:49 Dose: 40 units Isosorbide Mononitrate (Imdur) 30 mg PO DAILY [facility] Lidocaine HCl (Xylocaine 2%) 0 mg IVPUSH ASDIRECTED PRN PRN Reason: Heart Lisinopril (Prinivil) 10 mg PO DAILY [facility] Last Admin: 11/16/17 18:04 Dose: 10 mg Morphine Sulfate (Morphine) 2 mg IVPUSH Q2H PRN PRN Reason: Pain (severe 7-10) Last Admin: 11/16/17 19:49 Dose: 2 mg Nitroglycerin (Nitrostat) 0.4 mg SL ASDIRECTED PRN PRN Reason: Heart Ondansetron HCl (Zofran) 4 mg IV Q6H PRN PRN Reason: Nausea/Vomiting Potassium Chloride (Klor-Con M20) 20 meq PO BIDMEALS [facility] Sodium Chloride (Syrex Flush) 5 ml FLUSH Q8HR PRN PRN Reason: Keep Vein Open Last Admin: 11/16/17 16:25 Dose: 5 ml Discontinued Medications Aspirin (Aspirin) 324 mg PO ONETIME ONE Stop: 11/16/17 11:19 Last Admin: 11/16/17 11:19 Dose: 324 mg Aspirin (Aspirin) Confirm Administered Dose 324 mg .ROUTE .STK-MED ONE Stop: 11/16/17 11:20 Last Admin: 11/16/17 11:24 Dose: Not Given Aspirin (Ecotrin) 325 mg PO DAILY [facility] Labetalol HCl (Normodyne) 20 mg IVPUSH ONETIME ONE; Protocol Stop: 11/16/17 16:15 Last Admin: 11/16/17 16:25 Dose: 20 mg Labetalol HCl (Normodyne) 10 mg IVPUSH ONETIME ONE; Protocol Stop: 11/16/17 16:43 Last Admin: 11/16/17 16:46 Dose: 10 mg Metoprolol Tartrate (Lopressor) 5 mg IVPUSH ONETIME ONE Stop: 11/16/17 12:12 Last Admin: 11/16/17 12:34 Dose: Not Given Metoprolol Tartrate (Lopressor) 50 mg PO ONETIME ONE Stop: 11/16/17 21:01 Last Admin: 11/16/17 21:31 Dose: 50 mg Nitroglycerin (Nitrostat) 0.4 mg SL Q5M PRN PRN Reason: Chest Pain Last Admin: 11/16/17 11:41 Dose: 0.4 mg Nitroglycerin (Nitrostat) Confirm Administered Dose 0.4 mg .ROUTE .STK-MED ONE Stop: 11/16/17 11:20 Last Admin: 11/16/17 11:24 Dose: Not Given Nitroglycerin (Nitro-Bid 2%) 1 gm TOP Q6H [facility] Last Admin: 11/17/17 06:09 Dose: 1 gm Potassium Chloride (Klor-Con 10) 20 meq PO BIDMEALS [facility] Last Admin: 11/17/17 08:53 Dose: Not Given Sodium Chloride (Syrex Flush) 5 ml FLUSH Q8HR PRN PRN Reason: Keep Vein Open - Exam Quality Assessment: Supplemental Oxygen General: Alert, Oriented, Cooperative, No Acute Distress Neck: No JVD Lungs: Wheezing (Slight late is poorly wheeze upper and lower). No: Crackles, Rales Cardiovascular: Regular Rate, Regular Rhythm, No Murmurs. No: Bradycardia, Tachycardia GI/Abdominal Exam: Soft Back Exam: No: CVA Tenderness (R) Extremities: Pedal Edema (1+ pedal edema BLE) Peripheral Pulses: 2+: Radial (L), Radial (R) Skin: Warm, Dry, Intact Neurological: No New Focal Deficit Psy/Mental Status: Alert, Normal Affect, Normal Mood - Problem List Review Problem List Initiated/Reviewed/Updated: Yes - My Orders Last 24 Hours: My Active Orders 11/16/17 12:03 Resuscitation Status Routine 11/16/17 16:40 Blood Glucose Check, Bedside [RC] BIDMEALS 11/16/17 17:30 Lisinopril [Prinivil] 10 mg PO DAILY 11/16/17 19:30 Insulin Aspart [NovoLOG] 15 unit SUBCUT BID@ Insulin Detemir [Levemir] 40 unit SUBCUT BID@[id number],192911/16/17 21:00 Docusate Sodium [Colace] 100 mg PO BID Gabapentin [Neurontin] 300 mg PO BEDTIME 11/16/17 Dinner Heart Healthy Diet [DIET] 11/17/17 00:38 Atropine [Atropine 0.1 MG/ML] 0 mg IVPUSH ASDIRECTED PRN EPINEPHrine [EPINEPHrine 1:10,000] 1 mg IVPUSH ASDIRECTED PRN Lidocaine 2% [Xylocaine 2%] 0 mg IVPUSH ASDIRECTED PRN Nitroglycerin [Nitrostat] 0.4 mg SL ASDIRECTED PRN 11/17/17 09:00 Aspirin [Halfprin] 81 mg PO DAILY Furosemide [Lasix] 20 mg PO DAILY Isosorbide Mononitrate [Imdur] 30 mg PO DAILY Potassium Chloride [Klor-Con M20] 20 meq PO BIDMEALS - Plan Plan:: HISTORY OF PRESENT ILLNESS This 72-year-old morbidly obese gentleman was admitted through the ED due to chest pain rule, R/O KS and elevated blood pressure. Patient states he was his in his normal state of health until 4 days ago and admits to having normal and stable blood pressures and stated he felt good all winter long however now with a 4-5 day history of progressively worsening substernal chest pain with some shortness of breath. He denies any dizziness/lightheadedness or nausea vomiting. He does have significant CV risk factors that include HTN, T2 DM, obesity without any CVA history in the past. Denies tobacco use. Pertinent home medications include metoprolol succinate 25 mg twice a day, Lasix 20 mg daily, lisinopril 2.5 mg daily aspirin 81 mg daily. statin intolerant--liver Pertinent ED workup EKG; ST 109 Initial troponin negative CK-MB, 1.6 BNP 67 VS: 168/117 Chest x-ray, low lung volumes with hypoinflation, likely d/t due to pickwickian body habitus, no evidence of CHF Update this morning, blood pressure now controlled, very little chest pain, patient states almost completely resolved feels much better this morning, view telemetry strips--no ectopy, no ST depression or elevation Primary problems Chest pain, likely anginal, likely CAD contributory Hypertension, stage II Chronic problems T2DM, long-acting 40 units, prandial with NovoLog CKD, drug clearance 58, creatinine 1.22 Obesity, morbid, pickwickian BMi 40 HTN, uncontrolled Peripheral neuropathy Code status, discussed with patient, DO NOT RESUSCITATE Overall plan today, add clopidogrel, change and increase metoprolol to 50 mg by mouth twice a day, ASA, Lisinopril 10mg daily, remove nitrate paste, add low- dose PO nitrate--Imdur. Oxygen only to keep sats 95%. Low threshold for transfer , monitor him closely since significant CV risks. Ambulate on the floor today to assess ischemic demand and blood pressure, Will consult with cardiology in the a.m. medical management for now.
[2017-11-17] MEDS: Clopidogrel 75 MG Tab PO SCH (10:48)
[2017-11-17] MEDS: Lisinopril 10 MG Tab PO SCH (10:48)
[2017-11-17] MEDS: Potassium Chloride 20 MEQ Tab.ER PO SCH ×2 (10:48→17:52)
[2017-11-17] MEDS: Isosorbide Mononitrate 30 MG Tab.ER PO SCH (10:48)
[2017-11-17] MEDS: Metoprolol Tartrate 50 MG Tab PO SCH ×2 (10:49→20:42)
[2017-11-17] MEDS: Gabapentin 300 MG Cap PO SCH (20:44)
[2017-11-18] MEDS: Insulin Detemir 100 Units/ML 3 ML Pen SUBCUT SCH (08:18)
[2017-11-18] MEDS: Insulin Aspart 100 Units/ML 3 ML Pen SUBCUT SCH (08:20)
[2017-11-18] MEDS: Clopidogrel 75 MG Tab PO SCH (08:21)
[2017-11-18] MEDS: Furosemide 20 MG Tab PO SCH (08:22)
[2017-11-18] MEDS: Docusate Sodium 100 MG Cap PO SCH (08:22)
[2017-11-18] MEDS: Isosorbide Mononitrate 30 MG Tab.ER PO SCH (08:22)
[2017-11-18] MEDS: Potassium Chloride 20 MEQ Tab.ER PO SCH (08:23)
[2017-11-18] MEDS: Lisinopril 10 MG Tab PO SCH (08:23)
[2017-11-18] MEDS: Aspirin 81 MG Tab.EC PO SCH (08:23)
[2017-11-18 08:27] VITALS: BP 136/86
[2017-11-18] MEDS: Metoprolol Tartrate 50 MG Tab PO SCH (08:27)
--- NOTE | 2017-11-19 09:29 | DISCH ---
The patient was admitted in observation on 11/16/2017. Discharge from observation on 11/18/2017. FINAL DIAGNOSES: Stable angina, likely coronary artery disease; and hypertensive crisis. Chronic problems are type 2 diabetes mellitus, obesity/Pickwickian, hypertension, and peripheral neuropathy. HISTORY: 72-year-old morbidly obese gentleman, was admitted to the ED. He had some chest pains. He was admitted to rule out [place]. He did have significant elevated blood pressures stage II. The patient states he was in his normal state of health until about four days prior to admission and admits to having normal and stable blood pressures. He stated he felt good all winter long. However, he had a four to five-day history of progressively worsening substernal chest pain with some shortness of breath. He denied any lightheadedness, nausea, vomiting, or dizziness. He does have significant CV risk factors include hypertension, type 2 diabetes, not well-controlled, obesity. He was on aspirin. Denied any tobacco use. Pertinent home medications included metoprolol succinate, Lasix, lisinopril, and aspirin. Per the ED workup, he had EKG which showed sinus tach at 109. No ST-segment depression or elevation. Initial troponin was negative. CK-MB 1.6. BNP 67. His blood pressure on admission was 168/117. DIAGNOSTICS: Chest x-ray showed low lung volumes with hypoinflation, likely due to Pickwickian body habitus. After the patient arrived to the floor, he required ongoing further assessment and management on ongoing chest pain, hypertensive crisis requiring intravenous cardiovascular agents, labetalol, nitrates, increase in lisinopril, and beta-bob, and close monitoring on telemetry. HOSPITAL COURSE: Hospital course went fairly well. Again, he needed aggressive intervention early on admission, even though, he was stable when he came to the ED. He required IV labetalol x2 doses, increase in metoprolol, increase in lisinopril, and close monitoring for hemodynamic or end-organ perfusion. Labs; white count 10.0, hemoglobin 12.6, and hematocrit 40.1. Sodium and potassium are normal. BUN 20, creatinine 1.22. Troponin x3 was in the low threshold. Glucose 158. His blood pressures were eventually normalized. However, it took approximately 24 hours. He did have some ongoing chest pain. Nitroglycerin paste was given to him, anterior chest wall pain subsided around 4 for few hours and then down to 1. Eventually, he was ambulated the next day on telemetry. He had no chest pain thereafter. I did start Plavix. I gave him two doses. However, I am going to discontinue that on discharge until cardiac followup. PHYSICAL EXAMINATION: GENERAL: On discharge, the patient is alert and oriented. He is chest pain- free. LUNGS: His lungs are clear to auscultation. CV: Regular rate and rhythm with no rub, however, slightly muffled. Good distal pulses. No edema. VITAL SIGNS: Blood pressure 136/86, temperature normal, respiratory rate 20, and O2 sats 95%, this is on room air. MEDICATION CHANGES/ADJUSTMENTS: Metoprolol succinate 50 mg p.o. b.i.d. (increased from 25 b.i.d.). Aspirin 162 mg (increased from 81). Lisinopril 10 mg p.o. daily (increased from 2.5 mg p.o. daily). Nitroglycerin 0.4 mg as directed, sublingual. The patient can continue on all other home medications. DISPOSITION: The patient will be discharged from observation. He is chest pain free. He is hemodynamically stable. He is to report to the [facility] for [facility]. This referral has been made. Likely will need a stress test, possibly even an angiogram. The patient does have significant CV risk. He will follow up with his primary care provider as previously scheduled. Likely, will need stress testing. DICTATION ENDS HERE /[id number]/MODL
== END 2017-11-18 10:30 | disposition home or self-care (01) ==
LOC: KA.ED 11:08 → KA.MS 11:59
PROVIDERS: ADMIT Physician Assistant Medical; ATTEND Family Medicine
DX: I20.9 Angina pectoris, unspecified (principal); I16.9 Hypertensive crisis, unspecified; E11.42 Type 2 diabetes mellitus with diabetic polyneuropathy; E66.01 Morbid (severe) obesity due to excess calories; E78.00 Pure hypercholesterolemia, unspecified; Z88.8 Allergy status to other drugs, medicaments and biological substances; Z79.82 Long term (current) use of aspirin; Z79.4 Long term (current) use of insulin; Z79.899 Other long term (current) drug therapy
CPT/HCPCS: 36415; 71045; 80048; 80053; 82550; 82553; 82962; 83735; 83880; 84484; 85025; 85610; 85730; 93005; 96374; 96375; 99284; 99285; A9270-GY; G0378; J1815-GY; J2270

== ENCOUNTER 2020-03-20 07:12 | Emergency (ER) | payer MEDICARE, OTHER ==
[2020-03-20 07:19] VITALS: BP 115/98; PULSE 100
--- NOTE | 2020-03-20 07:27 | EDM.PDOC ---
ED HPI GENERAL MEDICAL PROBLEM - General Chief Complaint: General Stated Complaint: BLOODY NOSE Time Seen by Provider: 03/20/20 07:27 Source of Information: Reports: Patient History Limitations: Reports: No Limitations - History of Present Illness INITIAL COMMENTS - FREE TEXT/NARRATIVE: Presents today to the emergency department ambulatory with right-sided epistaxis. Had an event yesterday morning 19 March at roughly 4 AM that resolved with self packing of the right nostril with tissue. He had no further events during the day and was able to function yesterday and sleep comfortably last night. This morning, again at 4 AM, experienced right-sided epistaxis that was initially tamponaded with tissue packing. It then started bleeding through and was repacked. He then realized that this was an ongoing issue and presented to the emergency department for evaluation. Denies any trauma, no recent change in any medication that would precipitate epistaxis. Denies any recent allergy, sneezing, coughing or other procedures that would make prone susceptible to bleeding. Onset: Today Duration: Hour(s): Location: Reports: Face Quality: Reports: Same as Previous Episode Severity: Moderate Improves with: Reports: Other (Packing) Worsens with: Reports: Movement Context: Reports: Other Associated Symptoms: Reports: No Other Symptoms - Related Data Allergies Allergy/AdvReac Type Severity Reaction Status Date / Time exenatide [From Bydureon] Allergy Facial Verified 03/20/20 07:21 Swelling Csofioi-Yum-Bet Reductase Allergy Liver Verified 03/20/20 07:21 Inhibitor Problems Home Meds: Home Meds Insulin Detemir [Levemir] 40 unit SUBCUT BID@12/17/13 [History] Docusate Sodium [Colace] 100 mg PO BID 05/04/14 [History] Amoxicillin 2,000 mg PO ASDIRECTED PRN 11/16/17 [History] Furosemide [Lasix] 20 mg PO DAILY 11/16/17 [History] Gabapentin [Neurontin] 300 mg PO BEDTIME 11/16/17 [History] Insulin Aspart [Novolog Flexpen] 15 units SQ BID@11/16/17 [History] Potassium Chloride [Klor-Con 10] 20 meq PO BID 11/16/17 [History] Aspirin [Halfprin] 162 mg PO DAILY #0 11/18/17 [Rx] Lisinopril 10 mg PO DAILY #30 tablet 11/18/17 [Rx] Metoprolol Succinate [Toprol XL] 50 mg PO BID #1 tab.er 11/18/17 [Rx] Nitroglycerin [Nitrostat] 0.4 mg SL ASDIRECTED PRN #1 bottle 11/18/17 [Rx] Past Medical History HEENT History: Reports: Hard of Hearing, Impaired Vision, Other (See Below) Other HEENT History: hearing aids Cardiovascular History: Reports: High Cholesterol, Hypertension Genitourinary History: Reports: Chronic Renal Insuffiency Musculoskeletal History: Reports: Arthritis Endocrine/Metabolic History: Reports: Diabetes, Type II, Obesity/BMI 30+ - Infectious Disease History Infectious Disease History: Reports: Measles, Mumps - Past Surgical History Cardiovascular Surgical History: Reports: None GI Surgical History: Reports: Appendectomy Musculoskeletal Surgical History: Reports: Knee Replacement Social & Family History - Family History Family Medical History: Noncontributory - Tobacco Use Smoking Status *Q: Never Smoker Second Hand Smoke Exposure: No - Caffeine Use Caffeine Use: Reports: Soda Other Caffeine Use: Diet soda only - Recreational Drug Use Recreational Drug Use: No ED ROS GENERAL - Review of Systems Review Of Systems: Comprehensive ROS is negative, except as noted in HPI. ED EXAM, GENERAL - Physical Exam Exam: See Below Free Text/Narrative:: Alert oriented visiting freely with tissue packing present to the right Shaw with no active bleeding occurring. HEENT is negative to discharge or deformity other than the right nares. PERRLA no icterus no injection. There is clot material in the posterior oropharynx. Right Nares has packing in place which is removed per nursing staff to allow blowing of the nose and evaluation. Left nares is clear with no debris or evidence of bleeding. Right nares is reevaluated showing a 1 mm clear polyp in Kiesselbachs plexus a friable slightly oozing of blood on the anterior and inferior margin. No other source of bleeding is noted of what I am able to visualize with nasal speculum. Thorax is clear, cardiac is regular. Trace edema to the lower extremities. ED EPISTAXIS PROCEDURES - Epistaxis Procedure Indication: Epistaxis, Controlled Recent anticoagulants/antiplatlets: Yes Uncontrolled HTN: No Recent septal/nasal surgery: No Site of bleeding: Right Nare Clearing of clots: Patient Blew Nose Ice pack to area: Yes Chemical cautery: Silver Nitrate Topical (Small, 1 mm friable clear polyp bleeding at margins was cauterized with silver nitrate stick. No active bleeding noted after cauterization and on reevaluation 20 minutes later.) Course - Vital Signs Last Recorded V/S: Last Vital Signs Temp 36.6 C 03/20/20 07:14 Pulse 100 03/20/20 07:14 Resp 24 H 03/20/20 07:14 BP 115/98 H 03/20/20 07:14 Pulse Ox 92 L 03/20/20 07:14 Departure - Departure Time of Disposition: 07:54 Disposition: Home, Self-Care 01 Condition: Good Clinical Impression: Anterior epistaxis, Nasal polyp - Discharge Information *PRESCRIPTION DRUG MONITORING PROGRAM REVIEWED*: Not Applicable *COPY OF PRESCRIPTION DRUG MONITORING REPORT IN PATIENT HORACE: Not Applicable Referrals: Mikaela Fitzgerald PA-C [Primary Care Provider] - Forms: ED Department Discharge Additional Instructions: We cauterized the area that appeared to be bleeding. This was a small clear polyp that was bleeding around the edge. Do not forcefully blow your nose nor pick or insert anything into your nose for the next week. This will form a small scab and slough off naturally. This needs to be reevaluated in 7 to 14 days to see if further treatment is needed for what appears to be a polyp in the Kiesselbach plexus region. Continue all your medications as directed. Skip your aspirin today if you have not already taken it Make sure to maintain fluid hydration and eat healthy. Follow-up as needed. If bleeding returns this may need to undergo ENT evaluation and or packing until an appointment can be obtained. Follow-up with your clinic as able to schedule or return here if needed. Sepsis Event Note (ED) - Evaluation Sepsis Screening Result: No Definite Risk - Focused Exam Vital Signs: Vital Signs Temp Pulse Resp BP Pulse Ox 03/20/20 07:14 36.6 C 100 24 H 115/98 H 92 L - Problem List & Annotations (1) Anterior epistaxis SNOMED Code(s): 419941194 Code(s): R04.0 - EPISTAXIS Status: Acute Priority: High Current Visit: Yes (2) Nasal polyp SNOMED Code(s): 215753547 Code(s): J33.9 - NASAL POLYP, UNSPECIFIED Status: Chronic Priority: Medium Current Visit: Yes - Assessment/Plan Plan: We cauterized the area that appeared to be bleeding. This was a small clear polyp that was bleeding around the edge. Do not forcefully blow your nose nor pick or insert anything into your nose for the next week. This will form a small scab and slough off naturally. This needs to be reevaluated in 7 to 14 days to see if further treatment is needed for what appears to be a polyp in the Kiesselbach plexus region. Continue all your medications as directed. Skip your aspirin today if you have not already taken it Make sure to maintain fluid hydration and eat healthy. Follow-up as needed. If bleeding returns this may need to undergo ENT evaluation and or packing until an appointment can be obtained. Follow-up with your clinic as able to schedule or return here if needed.
== END 2020-03-20 08:05 | disposition home or self-care (01) ==
LOC: KA.ED 07:12
DX: R04.0 Epistaxis (principal); J33.9 Nasal polyp, unspecified; I12.9 Hypertensive chronic kidney disease with stage 1 through stage 4 chronic kidney disease, or unspecified chronic kidney disease; E11.9 Type 2 diabetes mellitus without complications; N18.9 Chronic kidney disease, unspecified; E66.9 Obesity, unspecified; Z68.41 Body mass index [BMI] 40.0-44.9, adult; Z88.8 Allergy status to other drugs, medicaments and biological substances; Z79.899 Other long term (current) drug therapy; Z79.4 Long term (current) use of insulin; Z90.49 Acquired absence of other specified parts of digestive tract
CPT/HCPCS: 30901; 99283

== ENCOUNTER 2020-04-11 07:54 | Emergency (ER) | payer MEDICARE, OTHER ==
--- NOTE | 2020-04-11 07:58 | EDM.PDOC ---
ED HPI GENERAL MEDICAL PROBLEM - General Chief Complaint: ENT Problem Stated Complaint: NOSEBLEED Time Seen by Provider: 04/11/20 07:58 Source of Information: Reports: Patient History Limitations: Reports: No Limitations - History of Present Illness INITIAL COMMENTS - FREE TEXT/NARRATIVE: Surya, 74-year-old male, complains of right-sided epistaxis. Bleeding started 5 AM with tamponade at home nearly obtained x2 bleeding recurred. 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 Onset: Today Onset Date: 04/11/20 Onset Time: 05:00 Duration: Hour(s):, Getting Worse Location: Reports: Face Quality: Reports: Same as Previous Episode - Related Data Allergies Allergy/AdvReac Type Severity Reaction Status Date / Time exenatide [From Bydureon] Allergy Facial Verified 03/20/20 07:21 Swelling Mxgmstk-Bcc-Mmk Reductase Allergy Liver Verified 03/20/20 07:21 Inhibitor Problems Home Meds: Home Meds Insulin Detemir [Levemir] 44 unit SUBCUT BID@12/17/13 [History] Docusate Sodium [Colace] 100 mg PO BID 05/04/14 [History] Amoxicillin 2,000 mg PO ASDIRECTED PRN 11/16/17 [History] Furosemide [Lasix] 20 mg PO DAILY 11/16/17 [History] Gabapentin [Neurontin] 600 mg PO BEDTIME 11/16/17 [History] Insulin Aspart [Novolog Flexpen] 18 units SQ BID@11/16/17 [History] Potassium Chloride [Klor-Con 10] 20 meq PO BID 11/16/17 [History] Aspirin [Halfprin] 162 mg PO DAILY #0 11/18/17 [Rx] Lisinopril 10 mg PO DAILY #30 tablet 11/18/17 [Rx] Metoprolol Succinate [Toprol XL] 50 mg PO BID #1 tab.er 11/18/17 [Rx] Nitroglycerin [Nitrostat] 0.4 mg SL ASDIRECTED PRN #1 bottle 11/18/17 [Rx] Past Medical History HEENT History: Reports: Hard of Hearing, Impaired Vision, Other (See Below) (Epistaxis) Other HEENT History: hearing aids Cardiovascular History: Reports: High Cholesterol, Hypertension Genitourinary History: Reports: Chronic Renal Insuffiency Musculoskeletal History: Reports: Arthritis Endocrine/Metabolic History: Reports: Diabetes, Type II, Obesity/BMI 30+ - Infectious Disease History Infectious Disease History: Reports: Measles, Mumps - Past Surgical History Cardiovascular Surgical History: Reports: None GI Surgical History: Reports: Appendectomy Musculoskeletal Surgical History: Reports: Knee Replacement Social & Family History - Family History Family Medical History: Noncontributory - Caffeine Use Caffeine Use: Reports: Soda Other Caffeine Use: Diet soda only ED ROS GENERAL - Review of Systems Review Of Systems: Comprehensive ROS is negative, except as noted in HPI. ED EXAM, GENERAL - Physical Exam Exam: See Below Free Text/Narrative:: Bleeding from the right nare with focused examination showing Kiesselbach's plexus once again waking in the same region I had cauterized on 20 March. As no follow-up was done for the referral process for ENT will attempt that today and place a packing. Chest is clear, cardiac is regular. Demonstrates no cyanosis nor pallor. Departure - Departure Time of Disposition: 08:34 Disposition: Home, Self-Care 01 Condition: Fair Clinical Impression: Anterior epistaxis - Discharge Information *PRESCRIPTION DRUG MONITORING PROGRAM REVIEWED*: Not Applicable *COPY OF PRESCRIPTION DRUG MONITORING REPORT IN PATIENT HORACE: Not Applicable Forms: ED Department Discharge Additional Instructions: Repacked your nose today to control bleeding. You need to get an appointment in the next 24 hours to discuss this and have it reevaluated at your clinic to have them complete the referral process to ENT in [place]. As I mentioned to you, if the packing needs to remain longer than 24 hours, then you need to be placed on antibiotic. 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 You need to get an appointment in the next 24 hours to discuss this and have it reevaluated at your clinic to have them complete the referral process to ENT in [place]. As I mentioned to you, if the packing needs to remain longer than 24 hours, then you need to be placed on antibiotic. Continue all your other medications as directed but stop taking your aspirin until you have been rechecked.
[2020-04-11 09:33] VITALS: BP 145/88; PULSE 83
== END 2020-04-11 08:40 | disposition home or self-care (01) ==
LOC: KA.ED 07:54
DX: R04.0 Epistaxis (principal); I12.9 Hypertensive chronic kidney disease with stage 1 through stage 4 chronic kidney disease, or unspecified chronic kidney disease; E11.22 Type 2 diabetes mellitus with diabetic chronic kidney disease; N18.9 Chronic kidney disease, unspecified; E66.9 Obesity, unspecified; Z90.49 Acquired absence of other specified parts of digestive tract; Z88.8 Allergy status to other drugs, medicaments and biological substances; Z79.4 Long term (current) use of insulin; Z79.82 Long term (current) use of aspirin; Z79.899 Other long term (current) drug therapy
CPT/HCPCS: 99283